=== PATIENT | female | born 2000 | race Two or more races ===

== ENCOUNTER 2023-03-06 22:06 | Emergency (ER) | payer MEDICAID ==
[~2023-03-06] VITALS: Ht 154.9 cm; Wt 99.5 kg
[2023-03-06 22:51] VITALS: TEMP 101.6; O2SAT 100
[2023-03-06 23:23] LABS: BASOPHILS % 0.3 % (0.0-2.0); EOSINOPHILS % 0.1 % (0.0-5.0); HEMATOCRIT. 42.1 % (36.0-48.0); HEMOGLOBIN. 13.8 g/dL (12.0-16.0); LYMPHOCYTES % 15.1 % (20.0-50.0); MEAN CORPUSCULAR HEMOGLOBIN 27.4 pg (28.0-32.0); MEAN CORPUSCULAR HGB CONC 32.8 g/dL (31.0-37.0); MEAN CORPUSCULAR VOLUME 83.4 fL (81.0-99.0); MEAN PLATELET VOLUME 7.3 fl (7.4-10.4); MONOCYTES % 10.9 % (2.0-8.0); NEUTROPHILS % 73.6 % (40.0-76.0); PLATELET 265 x1000/uL (130-400); RED BLOOD CELL COUNT 5.05 mill/uL (4.2-5.4); RED CELL DISTRIBUTION WIDTH 14.9 % (11.6-14.6); WHITE BLOOD COUNT 11.1 x1000/uL (4.5-11.0)
[2023-03-06 23:37] LABS: CLARITY URINE TURBID (CLEAR); COLOR URINE YELLOW (YELLOW); GLUCOSE URINE NEGATIVE (NEGATIVE); KETONES URINE NEGATIVE (NEGATIVE); LEUKOCYTE ESTERASE URINE 3+ (NEGATIVE); NITRITE URINE NEGATIVE (NEGATIVE); OCCULT BLOOD URINE 1+ (NEGATIVE); PROTEIN URINE TRACE (NEGATIVE); SPECIFIC GRAVITY URINE 1.025 (1.005-1.030)
[2023-03-06 23:44] LABS: ALANINE AMINOTRANSFERASE 107 IU/L (10-49); ALBUMIN 4.5 g/dL (3.2-4.8); ASPARTATE AMINOTRANSFERASE 54 IU/L (<34); BILIRUBIN TOTAL 0.3 mg/dL (0.1-1.0); CALCIUM 9.5 mg/dL (8.7-10.4); CARBON DIOXIDE 31 mEq/L (21-32); CHLORIDE 103 mEq/L (98-107); CREATININE 0.5 mg/dL (0.6-1.0); GLUCOSE 109 mg/dL (70-105); POTASSIUM 3.3 mEq/L (3.5-5.1); PROTEIN TOTAL 7.8 g/dL (6.0-8.3); SODIUM 138 mEq/L (136-145); UREA NITROGEN BLOOD 10 mg/dL (9-23)
[2023-03-06 23:46] LABS: DIFFERENTIAL COMMENT 1
[2023-03-07] LABS: BACTERIA URINE 3+; SQUAMOUS EPITHELIAL CELL URINE 2+ /lpf (RARE/1+); TRICHOMONAS URINE 1+; WBC URINE TNTC /hpf (0-2)
[2023-03-07] MEDS ORDERED: AMOX1TAB16 MT ×3 (00:40→01:12)
[2023-03-07] MEDS ORDERED: AMOXICILLIN/POTASSIUM CLAVULANATE 875/125MG TAB PO ONE (00:45)
[2023-03-07 00:47] VITALS: BP 121/89; PULSE 145; RESP 19
== END 2023-03-07 01:00 | disposition home or self-care (01) ==
LOC: ER 22:06
DX: J03.00 Acute streptococcal tonsillitis, unspecified (principal); I49.9 Cardiac arrhythmia, unspecified; Z98.890 Other specified postprocedural states
CPT/HCPCS: 36415; 80053; 81003; 81025; 85025; 93005; 99284

== ENCOUNTER 2023-05-13 23:11 | Emergency (ER) | payer MEDICAID, OTHER ==
[~2023-05-13] VITALS: Ht 154.9 cm; Wt 97.0 kg
[~2023-05-13 23:11] MED LIST: AMOX1TAB16 MT
[2023-05-13 23:19] VITALS: BP 107/71; PULSE 75; RESP 16; TEMP 98.2; O2SAT 98
[2023-05-14] MEDS ORDERED: LIDOCAINE HCL/PF 1% 10 MG/ML 5ML VIAL INFIL ONE (00:15)
[2023-05-14] MEDS ORDERED: NEOM1PAC6 TP (00:19)
[2023-05-14] MEDS ORDERED: AMOX1TAB16 MT (00:20)
[2023-05-14] MEDS: BACITRACIN ZINC OINT UDPKT TOP ONE (00:54)
== END 2023-05-14 01:06 | disposition home or self-care (01) ==
LOC: ER 23:21
DX: L03.011 Cellulitis of right finger (principal)
CPT/HCPCS: 99283; 10060; J3490; Z7610 ×2

== ENCOUNTER 2023-08-30 21:44 | Emergency (ER) | payer MEDICAID, OTHER ==
[~2023-08-30] VITALS: Ht 154.9 cm; Wt 100.0 kg
[~2023-08-30 21:44] MED LIST changes: +NEOM1PAC6 TP
[2023-08-30 21:49] VITALS: BP 135/79; PULSE 100; RESP 18; TEMP 98.6; O2SAT 99
[2023-08-30] MEDS: LIDOCAINE HCL/PF 1% 10 MG/ML 5ML VIAL INFIL ONE (23:30)
[2023-08-30] MEDS: BACITRACIN ZINC OINT UDPKT TOP ONE (23:30)
[2023-08-30] MEDS ORDERED: CEPH500T MT (23:46)
[2023-08-30] MEDS ORDERED: SULF1TAB48 MT (23:46)
== END 2023-08-31 00:19 | disposition home or self-care (01) ==
LOC: ER 21:44
DX: L02.211 Cutaneous abscess of abdominal wall (principal)
CPT/HCPCS: 10060; 99282; J3490

== ENCOUNTER 2023-09-01 17:31 | Emergency (ER) | payer OTHER ==
[~2023-09-01] VITALS: Ht 154.9 cm; Wt 125.0 kg
[~2023-09-01 17:31] MED LIST changes: +CEPH500T MT; +SULF1TAB48 MT
[2023-09-01 17:48] VITALS: O2SAT 98
[2023-09-01 19:09] VITALS: BP 102/64; PULSE 67; RESP 20; TEMP 98
== END 2023-09-01 19:14 | disposition home or self-care (01) ==
LOC: ER 17:35
DX: Z48.01 Encounter for change or removal of surgical wound dressing (principal)
CPT/HCPCS: 99281